=== PATIENT | male | born 1960 | race Caucasian/White ===

== ENCOUNTER → 2024-06-09 10:05 | Outpatient (REF) | payer BC, SELFPAY ==
[2024-06-09 11:40] LABS: Blood Urea Nitrogen 26 mg/dl (9-20); Calcium 9.6 mg/dl (8.4-10.2); Carbon Dioxide 26 mmol/L (22-30); Chloride 99 mmol/L (98-107); Glucose 154 mg/dl (70-99); Phosphorus 3.4 mg/dl (2.5-4.5); Potassium 4.7 mmol/L (3.5-5.1); Sodium 139 mmol/L (135-145); eGFR 44.74
[2024-06-09 11:59] LABS: Urine Protein < 5 mg/dl (0-12)
[2024-06-09 13:59] LABS: Intact PTH 126.2 pg/ml (13.6-85.8)
== END ==
LOC: REG 10:05
PROVIDERS: ATTENDING PHYSICIAN Specialist
DX: N18.31 Chronic kidney disease, stage 3a (principal); I10 Essential (primary) hypertension; N25.81 Secondary hyperparathyroidism of renal origin
CPT/HCPCS: 36415; 80048; 82570; 83970; 84100; 84156; 85018

== ENCOUNTER → 2024-07-07 12:50 | Outpatient (REF) | payer BC, SELFPAY ==
[2024-07-07 13:59] LABS: INR 1.33; PT 16.6 Sec (11.4-14.6)
[2024-07-07 14:00] LABS: APTT 30.6 Sec (23.4-35.0)
== END ==
LOC: REG 12:50
PROVIDERS: ATTENDING PHYSICIAN Internal Medicine; FAMILY PHYSICIAN Specialist
DX: I82.432 Acute embolism and thrombosis of left popliteal vein (principal)
CPT/HCPCS: 36415; 85610; 85730